=== PATIENT | male | born 1955 | race Caucasian/White ===

== ENCOUNTER 2022-02-04 22:24 | Emergency (ER) | payer MEDICARE ==
[~2022-02-04] VITALS: Ht 175.3 cm; Wt 61.2 kg
[2022-02-04] MEDS ORDERED: LIDOCAINE 1%-EPI 1:100,000 20 ML VIAL ONE (22:55)
[2022-02-04] MEDS ORDERED: SODIUM BICARBONATE 4.2 % (NEUT) 5 ML VIAL ONE (22:55)
[2022-02-04] MEDS ORDERED: LIDOCAINE 1%-EPI 1:100,000 20 ML VIAL IJ ONE (23:00)
[2022-02-04] MEDS ORDERED: TDAP DIPH,PERTUSS,TET VAC/PF 0.5 ML DISP.SYRIN IM ONE ×2 (23:00→23:18)
[2022-02-04] MEDS ORDERED: SODIUM BICARBONATE 4.2 % (NEUT) 5 ML VIAL TP ONE (23:00)
--- NOTE | 2022-02-04 23:00 | NUR ---
pt is from [facility], has a hematoma on left side of the head. pt states he has been drinking.
--- NOTE | 2022-02-05 00:12 | NUR ---
Dr. leach at bedside speaking with the pt.
--- NOTE | 2022-02-05 00:24 | NUR ---
pt taken for cat scan.
--- NOTE | 2022-02-05 00:44 | NUR ---
pt returned from cat scan.
[2022-02-05] MEDS ORDERED: CEPH500T PO (03:12)
--- NOTE | 2022-02-05 03:22 | NUR ---
Called [facility] transport for BLS transport back to [facility], eta 15 min.
--- NOTE | 2022-02-05 03:41 | NUR ---
[facility] transport arrived to ER to transport patient back to [facility], report and documentation given to EMT.
[2022-02-05 03:43] VITALS: BP 119/70
== END 2022-02-05 03:43 ==
LOC: ER 22:46
DX: S09.90XA Unspecified injury of head, initial encounter (principal); S01.81XA Laceration without foreign body of other part of head, initial encounter; W19.XXXA Unspecified fall, initial encounter; Y92.099 Unspecified place in other non-institutional residence as the place of occurrence of the external cause; H49.00 Third [oculomotor] nerve palsy, unspecified eye; Z88.0 Allergy status to penicillin; M25.512 Pain in left shoulder; M25.511 Pain in right shoulder; F10.129 Alcohol abuse with intoxication, unspecified
CPT/HCPCS: 99285; 70450; 12011; 72170; 73030 ×2; 72125; 90715; 90471; J3490 ×2; A4663